=== PATIENT | female | born 1955 | race Asian ===

== ENCOUNTER 2019-04-19 11:44 | Outpatient (CLI) | payer OTHER ==
[2019-04-19 12:45] LABS: Blood Urea Nitrogen 11 mg/dL (7-17)
--- NOTE | 2019-04-19 14:40 | Cat Scan Report ---
CT CHEST WITH CONTRAST INDICATION / CLINICAL INFORMATION: UTERINE CANCER. TECHNIQUE: Axial CT images were obtained through the chest after 100 cc of Omnipaque 300 IV contrast. Sagittal a nd coronal reformatted images. All CT scans at this location are performed using CT dose reduction fo r ALARA by means of automated exposure control. COMPARISON: None available. FINDINGS: HEART: No significant abnormality. THORACIC AORTA: No significant abnormality. MEDIASTINUM and LASHAY: There are 2 slightly prominent and questionable lymph nodes in the aortopulmona ry window measuring 1.8 x 0.6 cm and 1.4 x 0.7 cm in axial plane. No additional suspicious mediastina l lymph nodes. LUNGS: An 8 mm subpleural soft tissue density nodule is identified in the posterior left lower lobe o n image 44 series 2. The remainder of the lungs are clear. PLEURA: No significant pleural effusion. No pneumothorax. SKELETAL SYSTEM: No suspicious thoracic bony lesion is detected. IMPRESSION: 8 mm subpleural nodule in the left lower lobe. There are 2 borderline questionable lymph nodes in the AP window of the mediastinum. A metastatic process cannot be excluded. CT ABDOMEN AND PELVIS WITH CONTRAST HISTORY: UTERINE CANCER COMPARISON: None. TECHNIQUE: Axial CT images were obtained through the abdomen and pelvis after 100 cc of Omnipaque 300 intravenously. Sagittal and coronal reformatted images. All CT scans at this location are performed using CT dose reduction for ALARA by means of automated exposure control. FINDINGS: CT ABDOMEN: Liver: A 1 cm focus of enhancement is identified in the lateral right hepatic lobe on image 109, seri es 5. The remainder of the liver is unremarkable. Biliary: Gallbladder is surgically absent. Spleen: No significant abnormality. Unenlarged. Pancreas: No significant abnormality. Adrenals: No significant abnormality. Kidneys: No significant abnormality.. Tiny scattered renal cysts are identified with the largest richelle uring 1.5 cm near the superior pole of the right kidney. Lymphatics: No lymphadenopathy is detected in the abdomen or pelvis. Vasculature: No significant abnormality. Bowel/Peritoneum: No significant abnormality. A few scattered sigmoid diverticula are identified. No free air. No free fluid. Normal appendix. CT PELVIS: : Hysterectomy changes. The bladder and distal ureters are unremarkable. No adnexal abnormality. Osseous Structures: Mild thoracolumbar spondylosis. No suspicious bony lesion is detected. Additional Findings: None IMPRESSION: 1 cm focus of enhancement in the right hepatic lobe concerning for a solitary liver metastasis. Few scattered simple renal cysts. Minimal sigmoid diverticulosis. Cholecystectomy and hysterectomy. Signer Name: Homero Le Jr, MD Signed: 04/19/2019 2:35 PM Workstation Name: [id number]
== END 2019-04-19 11:45 | disposition home or self-care (01) ==
LOC: CT 11:44
PROVIDERS: ATTEND Internal Medicine Hematology & Oncology
DX: C55 Malignant neoplasm of uterus, part unspecified (principal); R91.1 Solitary pulmonary nodule
CPT/HCPCS: 36415; 71260; 74177; 82565; 84520; Q9967

== ENCOUNTER 2021-07-19 07:32 | Outpatient (CLI) | payer MEDICARE ==
[2021-07-19] MEDS ORDERED: SODIUM CHLORIDE 0.9% 1000 ML 1,000 ML IV SCH (08:00)
[2021-07-19] MEDS ORDERED: BENZOCAINE 20% TOP SPRAY 0.5 ML UNIT DOSE MM NR (08:00)
[2021-07-19 08:26] LABS: Basophils % (Auto) 0.8 % (0.0-1.8); Eosinophils # (Auto) 0.1 K/mm3 (0.0-0.4); Eosinophils % (Auto) 2.9 % (0.0-4.3); Hematocrit 33.9 % (30.3-42.9); Hemoglobin 11.4 gm/dl (10.1-14.3); Lymphocytes # (Auto) 1.4 K/mm3 (1.2-5.4); Lymphocytes % (Auto) 41.9 % (13.4-35.0); Mean Corpuscular HGB Conc 34 % (30-34); Mean Corpuscular Volume 104 fl (79-97); Monocytes # (Auto) 0.4 K/mm3 (0.0-0.8); Monocytes % (Auto) 11.4 % (0.0-7.3); Platelet Count 197 K/mm3 (140-440); Red Blood Count 3.26 M/mm3 (3.65-5.03); Red Cell Distribution Width 12.9 % (13.2-15.2)
--- NOTE | 2021-07-19 08:31 | Anesthesia Day of Surgery ---
Anesthesia Day of Surgery - Day of Surgery Patient Examined: Yes Patient H&P Reviewed: Yes Patient is NPO: Yes
--- NOTE | 2021-07-19 08:31 | Anesthesia Consultation ---
Anesthesia Consult and Med Hx Date of service: 07/19/21 - Airway Anesthetic Teeth Evaluation: Good ROM Head & Neck: Adequate Mental/Hyoid Distance: Adequate Mallampati Class: Class II Intubation Access Assessment: Probably Good - Pre-Operative Health Status ASA Pre-Surgery Classification: ASA3 Proposed Anesthetic Plan: MAC - Pulmonary Hx Respiratory Symptoms: No (recent mets to the lungs) - Other Systems Hx Cancer: Yes (cervical CA, radiation/chemo, mets + (lungs))
[2021-07-19 08:36] LABS: INR 0.93 (0.87-1.13)
[2021-07-19 08:37] LABS: Partial Thromboplastin Time 25.8 Sec. (24.2-36.6)
[2021-07-19 08:43] LABS: Blood Urea Nitrogen 14 mg/dL (7-17); Calcium 9.5 mg/dL (8.4-10.2); Hemolysis Index 16
[2021-07-19 08:44] LABS: BUN/Creatinine Ratio 23
[2021-07-19] MEDS ORDERED: propofoL 200 MG/20 ML VIAL IV ONE ×2 (09:22→09:23)
--- NOTE | 2021-07-19 11:00 | Short Stay Summary ---
Short Stay Documentation Date of service: 07/19/21 - History H&P: obtained from office - Allergies and Medications Current Medications: Allergies tree nut Allergy (Verified 07/19/21 07:50) Anaphylaxis Home Medications Medication Instructions Recorded Confirmed Last Taken Type ALPRAZolam [Xanax TAB] 0.25 mg PO HS 07/19/21 07/19/21 07/18/21 History 0.25mg Amitriptyline [Elavil] 25 mg PO HS 07/19/21 07/19/21 07/18/21 History 25 mg Apixaban [Eliquis] 5 mg PO BID 30 Days #60 tab 07/19/21 Unknown Rx Ascorbic Acid [Vitamin C] 1,000 mg PO DAILY 07/19/21 07/19/21 07/18/21 History 1000 mg Cholecalciferol Vit D3 [Vitamin D3 1,000 units PO Q48H 07/19/21 07/19/21 07/17/21 History 1,000 UNIT TAB] 1000 mg Cyanocobalamin (Vitamin B-12) 1,000 mcg IM QMONTH 07/19/21 07/19/21 07/16/21 History [Physicians Ez Use B-12] 1000 mcg Leflunomide [Arava] 20 mg PO QDAY 07/19/21 07/19/21 07/18/21 History 20 mg Levothyroxine [Synthroid] 75 mcg PO 07/19/21 07/18/21 History 75 mcg Active Medications Benzocaine (Benzocaine 20% [place] 0.5 Ml Unit Dose) 3 spray MM PREOP NR Stop: 07/19/21 23:59 Last Admin: 07/19/21 09:39 Dose: 3 spray Sodium Chloride (Nacl 0.9% 1000 Ml) 1,000 mls @ 42 mls/hr IV DIRECT IVONNE Last Admin: 07/19/21 08:22 Dose: 42 mls/hr - Brief post op/procedure progress note Date of procedure: 07/19/21 Pre-op diagnosis: Right atrial mass Post-op diagnosis: other (Right atrial thrombus) Estimated blood loss: none - Hospital course Hospital course: Patient presents today for CARLITO for possible right atrial mass. Patient found to have right atrial thrombus. Patient to be discharged home on Eliquis and follow-up in the office for TTE in 2 weeks. Patient tolerated procedure well with no complication - Disposition Condition at discharge: Good Disposition: 01 HOME / SELF CARE / HOMELESS - Discharge Diagnoses (1) Right atrial thrombus Status: Acute (2) Adenocarcinoma Status: Acute Short Stay Discharge Plan Activity: advance as tolerated Diet: low fat, low cholesterol, low salt Follow up with: Adriana STEWART MD [Primary Care Provider] - 7 Days DIRK BALL MD [Staff Physician] - 08/20/21 11:00 am (Patient has a follow-up appointment on 08/20/2021 at 11:00 AM at our [place] location. Phone #[phone] Patient has been scheduled for follow-up echo on 08/04/2021 at 3:15 PM at our [place] location) Forms: CARLITO Discharge Form Prescriptions: Apixaban [Eliquis] 5 mg PO BID 30 Days #60 tab
--- NOTE | 2021-07-19 11:39 | Post Anesthesia Evaluation ---
- Post Anesthesia Evaluation Patient Participated: Yes Airway Patent: Yes Stable Respiratory Function: Yes Nausea/Vomiting: No Temp > 96.8F: Yes Pain Manageable: Yes Adequeate Hydration: Yes Anesthesia Complications: No
[2021-07-19 12:14] VITALS: BP 135/74
== END 2021-07-19 12:26 | disposition home or self-care (01) ==
LOC: CATHLABREC 07:32
PROVIDERS: ATTEND Internal Medicine
DX: R00.2 Palpitations (principal); R93.1 Abnormal findings on diagnostic imaging of heart and coronary circulation; R06.02 Shortness of breath; R00.0 Tachycardia, unspecified; I51.3 Intracardiac thrombosis, not elsewhere classified; C80.1 Malignant (primary) neoplasm, unspecified; E78.00 Pure hypercholesterolemia, unspecified; M19.90 Unspecified osteoarthritis, unspecified site; E03.9 Hypothyroidism, unspecified; F41.9 Anxiety disorder, unspecified; Z88.8 Allergy status to other drugs, medicaments and biological substances; Z79.899 Other long term (current) drug therapy; Z90.49 Acquired absence of other specified parts of digestive tract; Z98.890 Other specified postprocedural states; Z85.118 Personal history of other malignant neoplasm of bronchus and lung
CPT/HCPCS: 36415; 80048; 85025; 85610; 85730; 93312; 93320; 93325; J2704; J7030